=== PATIENT | female | born 1960 | race Native Hawaiian/Other Pacific Islander ===

== ENCOUNTER 2017-02-18 22:57 | Emergency (ER) | payer OTHER ==
[2017-02-18 23:12] VITALS: TEMP 98
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
[2017-02-19] MEDS ORDERED: Bacitracin 500 Units/gm Oint Foilpak UD ONE (01:24)
[2017-02-19 01:45] VITALS: BP 162/72; PULSE 68; RESP 18; O2SAT 98
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
--- NOTE | 2017-02-19 12:36 | RAD ---
PROCEDURE: Radiographs of the left elbow. HISTORY: L elbow contusion COMPARISON: No prior. FINDINGS: BONES: Normal. No fracture. JOINTS: Normal. No osteoarthritis. SOFT TISSUES: Normal. JOINT EFFUSION: None. OTHER FINDINGS: None IMPRESSION: Unremarkable radiographs of the left elbow. Concordant results with the preliminary interpretation rendered by the emergency department physician procedure.
== END 2017-02-19 01:45 | disposition home or self-care (01) ==
LOC: C.ER 22:57
DX: S09.90XA Unspecified injury of head, initial encounter (principal); S50.02XA Contusion of left elbow, initial encounter; V09.3XXA Pedestrian injured in unspecified traffic accident, initial encounter; Y92.410 Unspecified street and highway as the place of occurrence of the external cause